=== PATIENT | male | born 1955 | race Caucasian/White ===

== ENCOUNTER 2017-11-06 13:43 | Emergency (ER) | payer OTHER ==
[~2017-11-06] VITALS: Ht 175.3 cm; Wt 120.0 kg
[~2017-11-06 13:43] MED LIST: GLUCTAB OR; LISI-366 PO; PERC10TA26 PO; SERO100T PO; TAMS0.4C67 PO
[2017-11-06 14:23] VITALS: BP 199/108; PULSE 92; RESP 20; TEMP 97.9; O2SAT 97
--- NOTE | 2017-11-06 14:40 | PD ---
HPI Chief Complaint: Skin Problem Time Seen by Provider: 14:32 Travel History International Travel<30 days: No Contact w/Intl Traveler<30days: No Traveled to known affect area: No History of Present Illness HPI 61-year-old male with history of hypertension, diabetes, presents emergency department for evaluation of right lower extremity erythema, edema that is now extending up to his thigh. Patient states he first noticed 2-3 days ago blistered rash that was reddened on the medial aspect of his right distal lower extremity just distal to his knee. It grew in size and became more reddened with more little tiny blisters. He then noticed that red streaking began moving proximal up to his groin. He states it is very painful, rates it a 10 out of 10. He states that touch or ambulation exacerbates the pain. He denies any injury. No fever or chills. Patient has no history of DVT or PE. He has no recent travel. No prolonged bedrest. He has been out of his metformin for a week and states his blood glucose has been elevated. He has no other symptoms to report at this time. FORMERLY [facility] Past Medical History Depression: Yes Diabetes: Yes Diminished Hearing: No Hypertension: Yes Social History Alcohol Use: No Tobacco Use: No Substance Use: No (QUIT MARIJUANA & CANDE METH IN 2007) Allergies-Medications (Allergen,Severity, Reaction): Coded Allergies: No Known Allergies (Verified Adverse Reaction, Unknown, 11/06/17) Reported Meds & Prescriptions Reported Meds & Active Scripts Active Reported Aspirin 81 Mg Chew 81 Mg CHEW DAILY [cholesterol med] Hydrochlorothiazide 25 Mg Tab 25 Mg PO DAILY Metformin (Metformin HCl) 500 Mg Tab 500 Mg PO TIDPC Review of Systems Except as stated in HPI: all other systems reviewed are Neg Physical Exam Narrative GENERAL: Well-nourished male patient, sitting up in bed, in no acute distress. SKIN: Focused skin assessment warm/dry. 10 cm in diameter area of clustered vesicles with associated erythema just distal to the right knee and the medial aspect of the leg along the L3 distribution. There is erythema streaking up to the groin. HEAD: Atraumatic. Normocephalic. EYES: Pupils equal and round. No scleral icterus. No injection or drainage. ENT: No nasal bleeding or discharge. Mucous membranes pink and moist. NECK: Trachea midline. No JVD. CARDIOVASCULAR: Elevated rate and rhythm. No murmur appreciated. RESPIRATORY: No accessory muscle use. Clear to auscultation. Breath sounds equal bilaterally. GASTROINTESTINAL: Abdomen soft, non-tender, nondistended. Hepatic and splenic margins not palpable. MUSCULOSKELETAL: No obvious deformities. No clubbing. No cyanosis. The right lower extremity distal to the knee is edematous and erythematous. It is extremely tender to palpate. Distal pulses are palpable. Cap refills within normal limits. NEUROLOGICAL: Awake and alert. No obvious cranial nerve deficits. Motor grossly within normal limits. Normal speech. PSYCHIATRIC: Appropriate mood and affect; insight and judgment normal. Data Data Last Documented VS Vital Signs Date Time Temp Pulse Resp B/P (MAP) Pulse Ox O2 Delivery O2 Flow Rate FiO2 11/06/17 14:49 97 14 163/93 (116) 96 Room Air 11/06/17 14:23 97.9 Orders Orders Complete Blood Count With Diff (11/06/17 14:40) Comprehensive Metabolic Panel (11/06/17 14:40) Prothrombin Time / Inr (Pt) (11/06/17 14:40) Act Partial Throm Time (Ptt) (11/06/17 14:40) Lactic Acid Sepsis Protocol (11/06/17 14:40) Urinalysis - C+S If Indicated (11/06/17 14:40) Blood Culture (11/06/17 14:40) Blood Glucose (11/06/17 14:40) Ecg Monitoring (11/06/17 14:40) Iv Access Insert/Monitor (11/06/17 14:40) Oximetry (11/06/17 14:40) Oxygen Administration (11/06/17 14:40) Vancomycin Inj (Vancomycin Inj) (11/06/17 15:45) Acyclovir (Zovirax) (11/06/17 18:00) Piperacil-Tazo 3.375 Gm Premix (Zosyn 3. (11/06/17 18:00) Labs Laboratory Tests Test 11/06/17 14:55 11/06/17 14:57 Lactic Acid Level 1.1 mmol/L White Blood Count 10.3 TH/MM3 Red Blood Count 5.34 MIL/MM3 Hemoglobin 16.4 GM/DL Hematocrit 46.7 % Mean Corpuscular Volume 87.4 FL Mean Corpuscular Hemoglobin 30.7 PG Mean Corpuscular Hemoglobin Concent 35.1 % Red Cell Distribution Width 14.0 % Platelet Count 270 TH/MM3 Mean Platelet Volume 8.8 FL Neutrophils (%) (Auto) 67.3 % Lymphocytes (%) (Auto) 22.7 % Monocytes (%) (Auto) 6.8 % Eosinophils (%) (Auto) 2.2 % Basophils (%) (Auto) 1.0 % Neutrophils # (Auto) 7.0 TH/MM3 Lymphocytes # (Auto) 2.4 TH/MM3 Monocytes # (Auto) 0.7 TH/MM3 Eosinophils # (Auto) 0.2 TH/MM3 Basophils # (Auto) 0.1 TH/MM3 CBC Comment DIFF FINAL Differential Comment Prothrombin Time 9.5 SEC Prothromb Time International Ratio 0.9 RATIO Activated Partial Thromboplast Time 25.1 SEC Blood Urea Nitrogen 24 MG/DL Creatinine 1.73 MG/DL Random Glucose 283 MG/DL Total Protein 7.8 GM/DL Albumin 2.7 GM/DL Calcium Level 9.2 MG/DL Alkaline Phosphatase 57 U/L Aspartate Amino Transf (AST/SGOT) 27 U/L Alanine Aminotransferase (ALT/SGPT) 40 U/L Total Bilirubin 0.4 MG/DL Sodium Level 136 MEQ/L Potassium Level 4.3 MEQ/L Chloride Level 99 MEQ/L Carbon Dioxide Level 25.7 MEQ/L Anion Gap 11 MEQ/L Estimat Glomerular Filtration Rate 40 ML/MIN MDM Medical Decision Making Medical Screen Exam Complete: Yes Emergency Medical Condition: Yes Medical Record Reviewed: Yes Differential Diagnosis Shingles versus cellulitis versus lymphangitis versus DVT Narrative Course 61-year-old male presents emergency department for evaluation. Patient appears without distress. He does have a clustered vesicular rash along the L3 distribution distal to the right knee with associated erythema. There is erythema extending proximal to the groin. Patient is diabetic and has been out of his metformin. His blood glucose is also elevated. His vital signs are otherwise stable. Laboratory Tests Test 11/06/17 14:55 11/06/17 14:57 Lactic Acid Level 1.1 mmol/L White Blood Count 10.3 TH/MM3 Red Blood Count 5.34 MIL/MM3 Hemoglobin 16.4 GM/DL Hematocrit 46.7 % Mean Corpuscular Volume 87.4 FL Mean Corpuscular Hemoglobin 30.7 PG Mean Corpuscular Hemoglobin Concent 35.1 % Red Cell Distribution Width 14.0 % Platelet Count 270 TH/MM3 Mean Platelet Volume 8.8 FL Neutrophils (%) (Auto) 67.3 % Lymphocytes (%) (Auto) 22.7 % Monocytes (%) (Auto) 6.8 % Eosinophils (%) (Auto) 2.2 % Basophils (%) (Auto) 1.0 % Neutrophils # (Auto) 7.0 TH/MM3 Lymphocytes # (Auto) 2.4 TH/MM3 Monocytes # (Auto) 0.7 TH/MM3 Eosinophils # (Auto) 0.2 TH/MM3 Basophils # (Auto) 0.1 TH/MM3 CBC Comment DIFF FINAL Differential Comment Prothrombin Time 9.5 SEC Prothromb Time International Ratio 0.9 RATIO Activated Partial Thromboplast Time 25.1 SEC Blood Urea Nitrogen 24 MG/DL Creatinine 1.73 MG/DL Random Glucose 283 MG/DL Total Protein 7.8 GM/DL Albumin 2.7 GM/DL Calcium Level 9.2 MG/DL Alkaline Phosphatase 57 U/L Aspartate Amino Transf (AST/SGOT) 27 U/L Alanine Aminotransferase (ALT/SGPT) 40 U/L Total Bilirubin 0.4 MG/DL Sodium Level 136 MEQ/L Potassium Level 4.3 MEQ/L Chloride Level 99 MEQ/L Carbon Dioxide Level 25.7 MEQ/L Anion Gap 11 MEQ/L Estimat Glomerular Filtration Rate 40 ML/MIN Lab work is reviewed. Patient is refusing ultrasound of the right lower extremity due to pain despite me offering him pain control. He does not want this. He fully understands the risk of DVT and associated emboli. I discussed the patient in the findings with my attending physician. She is also assessed the patient. patient is given IV Zosyn and vancomycin. We feel it is in his best interest to be admitted observation for IV antibiotics. Patient was also given an oral dose of acyclovir here in the emergency department. 1805 patient has decided he does not want to be admitted. I discussed with him the risks of worsening infection. The risks as he does have a DVT, a progressing, and potentially becoming embolus. Patient verbalized understanding. He is choosing to leave AGAINST MEDICAL ADVICE. AMA: The risks of leaving against medical advice without further evaluation treatment were discussed with the patient. These risks include cardiac dysfunction, cardiac dysrhythmia, possible heart attack, possible stroke or . The patient indicated understanding of these risks and appeared to have the capacity to make this decision. Diagnosis Primary Impression: Shingles Qualified Codes: B02.8 - Zoster with other complications Additional Impressions: Cellulitis Qualified Codes: L03.115 - Cellulitis of right lower limb Lymphangitis Hyperglycemia Acute pain of right lower extremity Admitting Information Admitting Physician Requests: Observation Med/Other Pt SpecificInfo: Prescription(s) given Scripts Metformin (Metformin) 500 Mg Tab 500 MG PO TIDPC for Blood Sugar Management, #90 TAB 0 Refills Prov: Quita Rosenberg 11/06/17 Acyclovir (Acyclovir) 800 Mg Tab 800 MG PO 5 TIMES A DAY for Mgmt Viral Infection for 7 Days, TAB 0 Refills Prov: Quita Rosenberg 11/06/17 Clindamycin (Clindamycin) 150 Mg Cap 300 MG PO Q6H for Infection for 10 Days, #80 CAP 0 Refills Prov: Quita Rosenberg 11/06/17 Disposition: 07 AGAINST MEDICAL ADVICE Condition: Stable Quita Rosenberg November 06, 2017 14:40
[2017-11-06 14:49] VITALS: BP 163/93; PULSE 97; RESP 14; O2SAT 96
[2017-11-06] MEDS ORDERED: ASPI-516 CHEW (14:53)
[2017-11-06] MEDS ORDERED: METF500T PO ×2 (14:53→18:06)
[2017-11-06] MEDS ORDERED: cholesterol med (14:53)
[2017-11-06] MEDS ORDERED: HYDR25TA5 PO (14:53)
[2017-11-06 15:35] LABS: BASOPHIL # 0.1 TH/MM3 (0-0.2); EOSINOPHIL # 0.2 TH/MM3 (0-0.4); EOSINOPHIL % 2.2 % (0.0-4.0); HEMATOCRIT 46.7 % (39.0-51.0); HEMOGLOBIN 16.4 GM/DL (13.0-17.0); LYMPH % 22.7 % (9.0-44.0); LYMPHOCYTE # 2.4 TH/MM3 (1.0-4.8); MEAN CELL VOLUME 87.4 FL (80.0-100.0); MEAN CORPUSCULAR HEMOGLOBIN 30.7 PG (27.0-34.0); MEAN CORPUSCULAR HGB CONC 35.1 % (32.0-36.0); MEAN PLATELET VOLUME 8.8 FL (7.0-11.0); MONO % 6.8 % (0.0-8.0); MONOCYTE # 0.7 TH/MM3 (0-0.9); NEUT % 67.3 % (16.0-70.0); PLATELET COUNT 270 TH/MM3 (150-450); RED BLOOD COUNT 5.34 MIL/MM3 (4.50-5.90); WHITE BLOOD COUNT 10.3 TH/MM3 (4.0-11.0)
[2017-11-06] MEDS ORDERED: VANCOMYCIN INJ 1,000 MG in SODIUM CHLOR 0.9% 250 ML INJ 250 ML IV ONE (15:45)
[2017-11-06 15:46] LABS: ALBUMIN 2.7 GM/DL (3.4-5.0); ALT (GPT) 40 U/L (12-78); AST (GOT) 27 U/L (15-37); BICARBONATE 25.7 MEQ/L (21.0-32.0); CALCIUM 9.2 MG/DL (8.5-10.1); CHLORIDE 99 MEQ/L (98-107); CREATININE 1.73 MG/DL (0.60-1.30); GLOMERULAR FILTRATION RATE 40 ML/MIN (>89); GLUCOSE,RANDOM 283 MG/DL (74-106); SODIUM (NA) 136 MEQ/L (136-145)
[2017-11-06 15:48] LABS: ALKALINE PHOSPHATASE 57 U/L (45-117); BLOOD UREA NITROGEN 24 MG/DL (7-18); TOTAL BILIRUBIN ADULT 0.4 MG/DL (0.2-1.0); TOTAL PROTEIN 7.8 GM/DL (6.4-8.2)
[2017-11-06 16:24] LABS: INTERNATIONAL NORMALIZED RATIO 0.9 RATIO; PROTHROMBIN TIME - PATIENT 9.5 SEC (9.8-11.6)
[2017-11-06] MEDS ORDERED: PIPERACIL-TAZO 3.375 GM PREMIX 50 ML IV ONE (18:00)
[2017-11-06] MEDS ORDERED: ACYCLOVIR 800 MG TAB PO ONE (18:00)
[2017-11-06] MEDS ORDERED: CLIN150C14 PO (18:06)
[2017-11-06] MEDS ORDERED: ACYC800T PO (18:06)
[2017-11-06 18:40] LABS: BILIRUBIN, URINE NEG (NEG); BLOOD, URINE SMALL (NEG); GLUCOSE,URINE 1000 mg/dL (NEG); KETONE, URINE NEG (NEG); NITRITE,URINE NEG (NEG); SPERM, URINE RARE; SQUAMOUS EPITHELIAL CELL URINE 1 /hpf (0-5); URINE COLOR YELLOW (YELLW/STRAW); URINE LEUKOCYTE ESTERASE NEG (NEG)
== END 2017-11-06 18:35 | disposition left against medical advice (07) ==
LOC: NEPE 13:43
DX: B02.9 Zoster without complications (principal); L03.115 Cellulitis of right lower limb; I89.1 Lymphangitis; E11.65 Type 2 diabetes mellitus with hyperglycemia; I10 Essential (primary) hypertension
CPT/HCPCS: 80053; 81001; 83605; 85025; 85610; 85730; 87040; 96365; 96375; 99284; J2543; J3370; J7050